=== PATIENT | male | born 1985 | race Caucasian/White ===

== ENCOUNTER 2021-04-14 08:37 | Emergency (ER) | payer MEDICAID, SELFPAY ==
[2021-04-14 08:43] VITALS: BP 174/81; PULSE 108; RESP 17; TEMP 37.1; O2SAT 98; BMI 26.6
--- NOTE | 2021-04-14 09:32 | ED_ITS ---
HPI - Headache General Chief Complaint: Headache Stated Complaint: head neck pain Time Seen by Provider: 04/14/21 09:22 Source: patient Mode of arrival: ambulatory History of Present Illness HPI Narrative: 35-year-old male presenting to the ED complaining of right-sided ear pain radiating to head and throat x a couple days. Also reports right-sided swollen lymph nodes. Denies fever, chills, drainage from ear, hearing loss, difficulty swallowing, cough, sick contacts Related Data Previous Rx's Medication Instructions Recorded amoxicillin 875 mg-potassium 1 tab PO Q12H 7 Days #14 tab 04/14/21 clavulanate 125 mg tablet (Augmentin) Allergies Allergy/AdvReac Type Severity Reaction Status Date / Time No Known Allergies Allergy Verified 04/14/21 08:42 [No Known Allergies*] Review of Systems Review of Systems: Constitutional: No Fever, No Chills ENT/Mouth: + Ear Pain, No Nasal Congestion, No Sinus Pain, No Hoarseness, + sore throat, No Rhinorrhea, No Swallowing Difficulty Cardiovascular: No Chest Pain, No SOB Respiratory: No Cough Gastrointestinal: No Nausea, No Abdominal pain Musculoskeletal: No joint pain, No Myalgias, No Joint Swelling Skin: No Skin Lesions, No rash Neuro: No Weakness Yes all other systems are reviewed and are negative [facility] [place] Past Medical History Attestation statement: The following information was validated with the patient. Medical History (Updated 04/14/21 @ 09:33 by MARIANELA Lombardi) No known health problems Social History Social History Advance Directives: Yes Advance Directives Information Provided: Yes Advance Directives on File: No Physical Exam Vital Signs: Vital Signs: Last Vital Signs Temp 98.7 F 04/14/21 08:43 Pulse 108 H 04/14/21 08:43 Resp 17 04/14/21 08:43 BP 174/81 H 04/14/21 08:43 Pulse Ox 98 04/14/21 08:43 Body Mass Index 26.6 Const: General: cooperative and healthy appearing Orientation/consciousness: patient oriented x3 Limitations: no limitations HENMT: Head: Yes normal to inspection Ears: hearing grossly normal bilaterally, external ears normal, TM normal on the left, mastoids normal, no external ear abnormalities, hearing grossly not impaired and TM abnormal dull on the right and with fluid behind the TM on the right General nose exam: Normal external nose present Face and sinus: Yes normal facial exam Mouth: Normal oral and palatal mucosa present Teeth and gingiva: dentition normal Throat: Yes posterior oropharynx normal, Yes tonsils normal, Yes uvula midline, No peritonsillar mass, No uvula laterally displaced and No uvular edema Eyes: General: appearance normal, both eyes and all related structures EOM: EOMs intact bilaterally Neck: Other: Mild right-sided submandibular lymphadenopathy Neck: Yes normal visual inspection Resp: Effort & Inspection: normal respiratory effort and no stridor Cardio: Rate: regular rate Skin: Rashes: no rashes Wounds: no wounds Neuro: General: patient oriented x3 Gait exam (Neuro): Normal gait present Extrem: General: Yes normal to inspection MDM - Headache MDM Narrative Medical decision making narrative: 35-year-old male presenting to the ED complaining of right-sided ear pain radiating to head and throat x a couple days. On exam initially tachycardic, resolved without intervention, NAD/nontoxic appearing, exam consistent with otitis media. Mastoids WNL, low concern for mastoiditis or malignant otitis externa. No evidence of [employer]. Will obtain rapid strep and treat with Augmentin Discharge Plan Discharge Clinical Impression: Otitis media Qualifiers: Otitis media type: unspecified Chronicity: acute Qualified Code(s): H66.90 - Otitis media, unspecified, unspecified ear Patient Disposition: Home, Self-Care Instructions: Ear Infection (ED) Additional Instructions: You have an internal ear infection Augmentin is antibiotic please take as prescribed If your infection worsens, pain becomes unbearable, you have fever please return to the ED Please follow-up with your doctor Prescriptions: New amoxicillin-pot clavulanate [Augmentin] 875-125 mg tablet 1 tab PO Q12H 7 Days Qty: 14 RF: 0 Referrals: Catina Romero DO [Primary Care Provider] - 5 days
[2021-04-14 09:38] VITALS: BP 135/93; PULSE 92; RESP 16; O2SAT 97
[2021-04-14 09:55] LABS: IDNOW Serial# 9DD0AD1C; Strep A Nucleic Acid Negative (Negative)
== END 2021-04-14 09:46 | disposition home or self-care (01) ==
PROVIDERS: Physician Assistant; Emergency Provider Emergency Medicine; PCP Family Medicine
DX: H66.90 Otitis media, unspecified, unspecified ear (principal); J02.9 Acute pharyngitis, unspecified
CPT/HCPCS: 36415; 87651; 99283; 99284

== ENCOUNTER 2022-04-21 09:10 | Emergency (ER) | payer MEDICAID, SELFPAY ==
[2022-04-21 09:22] VITALS: BP 129/85; PULSE 84; RESP 16; TEMP 36.6; O2SAT 98; BMI 25.0
[2022-04-21 09:36] LABS: COVID-19 Test Positive (Negative)
--- NOTE | 2022-04-21 11:32 | ED.URI ---
HPI - URI/Sore Throat General Chief Complaint: Upper Respiratory Symptoms Stated Complaint: chest tightness Time Seen by Provider: 04/21/22 11:23 Source: patient Mode of arrival: ambulatory Limitations: no limitations History of Present Illness HPI Narrative: patient presents emergency department for evaluation of productive cough, Sore throat, and nasal congestion x3 days. denies fevers, chills, ear pain, headache, dizziness, lightheadedness, chest pain, shortness of breath, difficulty breathing, nausea, vomiting, abdominal pain. He states he has been vaccinated for COVID- 19 x 2, unaware of which vaccination he received. Denies any known sick contacts, however he did to start a new job recently. Related Data Previous Rx's Medication Instructions Recorded amoxicillin 875 mg-potassium 1 tab PO Q12H 7 days #14 tabs 04/14/21 clavulanate 125 mg tablet (Augmentin) Allergies Allergy/AdvReac Type Severity Reaction Status Date / Time No Known Allergies Allergy Verified 04/14/21 08:42 [No Known Allergies*] Review of Systems Review of Systems: Constitutional: no fever. no chills. No weakness. no fatigue. ENT/ Mouth: No Ear Pain, positive Nasal Congestion, positive sore throat, No Rhinorrhea, No Swallowing Difficulty Skin: No rash or itching. Cardiovascular: No chest pain. No palpitations. Respiratory: No shortness of breath. Positive cough. positive sputum production. Gastrointestinal: No nausea. No vomiting. No diarrhea. No abdominal pain. Genitourinary: No burning micturition. No urinary frequency. Neurologic: No headache. No dizziness. No syncope. No numbness or tingling in the extremities. Musculoskeletal: No muscle pain. No back pain. No joint pain or stiffness. Yes all other systems are reviewed and are negative [facility] Past Medical History Attestation statement: The following information was validated with the patient. Source: old records reviewed Medical History No known health problems Social History Social History Advance Directives: No Advance Directives Information Provided: No Physical Exam Vital Signs: Vital Signs: Last Vital Signs Temp 98 F 04/21/22 09: Pulse 84 04/21/22 09:22 Resp 16 04/21/22 09:22 BP 129/85 04/21/22 09:22 Pulse Ox 98 04/21/22 09:22 O2 Del Method 04/21/22 09:22 BMI result Body Mass Index 25.0 Vital signs have been reviewed as normal and appeared to be correct. Blood pressure normal.? Heart rate normal.? Respiration rate normal. Temperature normal.? Oxygen saturation normal. Appearance: Alert.?Oriented to person, place and time. No acute distress.?Normal affect. Eyes: Pupils equal, round and reactive to light.? ENT: TM normal bilaterally. Pharynx normal.?? Neck: Normal inspection.? Neck supple.??No cervical adenopathy CVS: Heart sounds normal. Normal heart rate and rhythm.? Pulses normal.?? Respiratory: No respiratory distress.? Lung sounds clear to auscultation bilaterally?? Abdomen: Soft and non-tender. Normoactive bowel sounds. Skin: Skin warm and dry.? Normal skin color.? ? Extremities: No lower extremity edema.? Neuro: Moves all extremities spontaneously. Sensation intact bilaterally. No motor deficits. Ambulates with normal steady gait. Course Course Course Narrative: Patient is a 36-year-old male with no significant past medical history, presenting for evaluation of upper respiratory symptoms. COVID-19 testing is positive. At this time history and physical exam not consistent with ACS/PE/pneumonia. Well-appearing, nontoxic, afebrile, no tachycardia or tachypnea/hypoxia. Speaking clear full sentences, ambulatory with steady gait. Discussed conservative treatment including rest, hydration, Tylenol/ibuprofen as needed for fever and body aches, saline nasal spray, humidifier, [id number] cold medication. Advised to follow-up with primary care provider as needed, discussed reasons to return back to the emergency department. All questions were answered. Patient discharged home in stable condition. Provided with a return to work/school note. MDM - URI/Sore Throat Medical Records Attestation: I reviewed the patient's medical records. Lab Data Attestation: I reviewed the patient's lab results. Labs: Lab Results 04/21/22 Range/Units 09:21 COVID-19 ([facility]) Positive A (Negative) COVID-19 Clin Com See Note Discharge Plan Discharge Clinical Impression: COVID-19 Patient Disposition: Home, Self-Care Instructions: COVID-19 (Coronavirus Disease 2019) (ED) Additional Instructions: Your COVID-19 testing was positive today. Per CDC guidelines, You need to isolate for 5 days since her symptom onset, the soonest you may end isolation/ return to work is 04/24/2022. However, your symptoms need to be improving, you need to be without a fever for 24 hour period without the use of Tylenol or ibuprofen before return. Be sure to rest, stay well hydrated drinking plenty of fluids, eat small frequent meals. Tylenol/ibuprofen can be used as needed for fever/pain. [id number] cold medications may be helpful as well for symptoms. Saline nasal spray, humidifier may be helpful for nasal congestion. You may return to the emergency department with any new or worsening symptoms or concerns. Follow-up with your primary care provider as needed. Prescriptions: No Action amoxicillin-pot clavulanate [Augmentin] 875-125 mg tablet 1 tab PO Q12H 7 Days Qty: 14 0RF Stand Alone Forms: Work/School Release
== END 2022-04-21 11:59 | disposition home or self-care (01) ==
PROVIDERS: Emergency Provider Emergency Medicine; PCP Family Medicine
DX: U07.1 COVID-19 (principal); R07.89 Other chest pain
CPT/HCPCS: 87635; 99282; 99283